=== PATIENT | male | born 1990 | race Asian ===

== ENCOUNTER 2022-06-18 10:16 | Emergency (ER) | payer OTHER ==
[~2022-06-18] VITALS: Ht 172.7 cm; Wt 68.6 kg
[2022-06-18 10:26] VITALS: BP 136/66
[2022-06-18] MEDS ORDERED: BACDST PO (12:23)
== END 2022-06-18 12:30 | disposition home or self-care (01) ==
LOC: ER 10:16
DX: L02.31 Cutaneous abscess of buttock (principal)